=== PATIENT | female | born 1960 | race Caucasian/White ===

== ENCOUNTER 2017-10-01 14:56 | Emergency (ER) | payer MEDICAID ==
[~2017-10-01] VITALS: Ht 172.7 cm; Wt 62.6 kg
[~2017-10-01 14:56] MED LIST: ACYCLOVIR 400400 MG PO; AMBIEN 5 MG TABL5 M1 PO; ATIVAN1 MG PO; B-50 COMPLEX1 EAC1; BENTYL20 MG PO; BIOTIN1 MG; CALCIUM OYSTER500 MG; CARAFATE 1 GM TA1 G1 PO; CARAFATE 11 GM/10 M1 PO; CELEXA40 MG; CENTRUM SILVER1 EAC2 PO; CLONAZEPAM 0.50.5 M1 PO; CLONAZEPAM 1 MG1 M1; CLONAZEPAM 1 MG1 M1 PO; CYCLOBENZAPRINE10 MG; ESTRACE0.5 MG; GABAPENTIN100 MG PO; HYDROCHLOROTHIA25 M1; KEFLEX500 MG PO; LUNESTA3 MG PO; MAALOX ADVANCE770 ML PO; MAGNESIUM250 M1; MELATONIN3 MG; METAXALL800 MG PO; MULTIVITAMINS; NASONEX17 GM; NITROGLYCERIN0.4 MG SUBLING; PERCOCET 5-3251 EACH PO; PROPRANOLOL 1010 M1 PO; PROTONIX40 M1 PO; PROVERA2.5 MG; RESTORIL7.5 MG PO; SYNTHROID50 MCG; TOPROL XL25 MG; TRAMADOL 50 MG50 MG; TRAMADOL 50 MG50 MG PO; TRIAMCINOLONE A80 G2 TOP; VALERIAN400 MG; VITAMIN D-32000 UNIT; VITCB500GO; [UNRECOGNIZED DRUG - NUTRITION]; [UNRECOGNIZED DRUG - OTHER]; [UNRECOGNIZED DRUG - REMARK]
[2017-10-01] MEDS ORDERED: ADVAIR HFA 230M12 GM INH (15:09)
[2017-10-01] MEDS ORDERED: CLARITIN10 MG PO (15:10)
[2017-10-01] MEDS ORDERED: MEDROLDOSEPACK PO (16:14)
[2017-10-01] MEDS ORDERED: VENTOLIN HFA 1818 GM INH (16:14)
[2017-10-01 16:44] VITALS: BP 138/87
--- NOTE | 2017-10-03 14:38 | EKG ---
[place] [address] ELECTROCARDIOGRAM REPORT Name: CANDY DAMON Room: [facility]#: [id number] Admission: 10/01/17 Attend Phys: Discharge: 10/01/17 Date of : 56 Report #: [id number] THIS REPORT FOR: //name// [facility] ED Test Date: 2017-10-01 Test Time: 15:28:23 Pat Name: CANDY DAMON Department: Room: Gender: F [employer] Operations Specialist: Fredo VIRGEN : 1960 Requested By: Corey Watts Order Number: [id number] MD: Joss Floyd Measurements Intervals [place] Rate: 75 P: 50 NE: 130 QRS: 128 QRSD: 110 T: 57 QT: 372 QTc: 416 Interpretive Statements Sinus rhythm RSR' in V1 or V2, right VCD or RVH Compared to ECG 01/25/2016 12:09:06 RSR' in V1 or V2 now present Left posterior fascicular block no longer present Electronically Signed On 10-03-2017 14:38:13 CDT by Joss Floyd [email or web address] <ELECTRONICALLY SIGNED> By: Joss Floyd MD, FACC 10/03/17 1438 1528 1528 Joss Floyd MD, FAC /EPI
== END 2017-10-01 16:46 | disposition home or self-care (01) ==
LOC: M.ERS 14:56
DX: R05 Cough (principal); R09.89 Other specified symptoms and signs involving the circulatory and respiratory systems; F41.9 Anxiety disorder, unspecified; F43.10 Post-traumatic stress disorder, unspecified; R53.82 Chronic fatigue, unspecified; Z88.1 Allergy status to other antibiotic agents; Z88.5 Allergy status to narcotic agent; Z88.2 Allergy status to sulfonamides; Z88.8 Allergy status to other drugs, medicaments and biological substances

== ENCOUNTER 2018-09-05 10:53 | Emergency (ER) | payer MEDICAID ==
[~2018-09-05] VITALS: Ht 172.7 cm; Wt 59.0 kg
[~2018-09-05 10:53] MED LIST changes: +ADVAIR HFA 230M12 GM INH; +CLARITIN10 MG PO; +MEDROLDOSEPACK PO; +VENTOLIN HFA 1818 GM INH
[2018-09-05] MEDS ORDERED: NASACORT10.8 ML NASAL (11:05)
[2018-09-05] MEDS ORDERED: METHIMAZOLE5 MG PO (11:05)
[2018-09-05] MEDS ORDERED: TOBRAMYCIN SULFA5 M1 OPHTHALMIC (11:26)
[2018-09-05 11:33] VITALS: BP 119/83
== END 2018-09-05 11:33 | disposition home or self-care (01) ==
LOC: M.ERS 10:53
DX: S05.02XA Injury of conjunctiva and corneal abrasion without foreign body, left eye, initial encounter (principal); G47.00 Insomnia, unspecified; F41.9 Anxiety disorder, unspecified; Z88.1 Allergy status to other antibiotic agents; Z88.5 Allergy status to narcotic agent; Z88.2 Allergy status to sulfonamides; Z88.8 Allergy status to other drugs, medicaments and biological substances; Z90.12 Acquired absence of left breast and nipple; W45.8XXA Other foreign body or object entering through skin, initial encounter; Y92.89 Other specified places as the place of occurrence of the external cause; Y93.89 Activity, other specified; Y99.8 Other external cause status